=== PATIENT | male | born 1985 | race Caucasian/White ===

== ENCOUNTER 2023-03-31 08:39 | Outpatient (CLI) | payer BC, SELFPAY | END 2023-03-31 08:40 | disposition home or self-care (01) | LOC: NFLDREF 04-01 08:30 | PROVIDERS: PCP Family Medicine; Referring Provider Family Medicine; Visit Provider Family Medicine | DX: Z00.00 Encounter for general adult medical examination without abnormal findings (principal); F10.10 Alcohol abuse, uncomplicated; Z12.5 Encounter for screening for malignant neoplasm of prostate; Z13.6 Encounter for screening for cardiovascular disorders | CPT/HCPCS: 80053; 80061; 84153 ==

== ENCOUNTER 2023-07-19 10:00 | Outpatient (RCR) | payer BC, SELFPAY ==
--- NOTE | 2023-06-19 09:17 | PT.OPDNX ---
PT [facility] Daily Note PT [facility] Daily Note Start: 04/10/23 09:53 Freq: Status: Active Protocol: Document 06/19/23 08:34 ARR (Rec: 06/19/23 09:16 ARR [email or web address]) E-signed By Beth Peraza DPT PT OP Daily Progress Note Visit Information Note Type Daily Note Visit Number 8 Insurance Information Insurance Name [employer] Insurance Information/Comments 11/09 EVAL 04/17 POC extended on 06/19 for additional 8 visits. 16 total Medical Diagnosis M54.6 pain in thoracic spine M54.2 cervicalgia Treating Diagnosis M54.6 pain in thoracic spine M54.2 cervicalgia Referring MD Pearce (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 Date: 04/10/2023 Prepared by: Beth Peraza Exercises - Prone Chest Stretch on Chair - 1-2 x daily - 5-7 x weekly - 6-8 reps - Segmental Cat Cow - 1-2 x daily - 5-7 x weekly - 6-8 reps - Sidelying Open Book Thoracic Lumbar Rotation and Extension - 1-2 x daily - 5-7 x weekly - 10 reps - Sleeper Stretch - 1 x daily - 5-7 x weekly - 2-3 reps - 30 sec hold Objective Other/Pertinent Objective Prolonged distraction with CS flexion reduces scap sx's Eval: Posture: rounded shoulders, reduced TS kyphosis with inc?d prominence of CT junction. Inc?d scapular protraction/ abduction Palpation: no significant TTP. Inc?d tone bilateral TS paraspinals. Inc?d prominence of anterior humeral head bilaterally. RANGE OF MOTION UE AROM (R/L): -ER0: 60* bilat -Abd: 180 R scap pain -FF: 180 no pain increased -Sidelying IR PROM: 60 L, 40 R -MRE: L mid scap / R inferior angle -LRF: T2 bilat Cervical AROM: -Flx: 45 -Ext: 45 with R scap pain -R Rot: 60 with R scap pain -L Rot: 60 -R Sidebend: reproduction of R scap pain -L Sidebend: WNL TS AROM: slight reduction it TS AROM rotation bilaterally without pain flare STRENGTH UE Strength (R/L): -ER0: 3+ R with anterior sh pain / 4- L -IR0: R/L 4+ SPECIAL TESTS: Labral: (R/L) -O?Briens: neg -Biceps Load (supine or seated ): neg Instability (R/L) -A/P load and shift: neg bilat -Sulcus sign: neg bilat Impingement (R/L) -Neers: neg bilat -Miller-Mukesh: neg bilat -Posterior internal impingement: neg bilat Other Tests: -Spurlings: neg -Distraction: neg -PA segmental assessment: hypomobility C7-T5 -Deep neck flexor: poor Patient Instructed in Risks/Benefits Yes Neuromuscular Re-Ed Neuromuscular Reeducation Minutes ( 23 minutes) Neuromuscular Reeducation Comments NMR: Indicated to facilitate improved muscle firing and postural awareness through the use of tactile cues. -Quadruped bird dog UE only x 6 reps. LE only x 6 reps -Quadruped Sh ext orange tubing 2 x 15ea side Standing: -D2 ext 2 x 10 reps blue tubing R UE. x 10 reps L UE -D1 flexion x 10 reps ea UE yellow tubing Other Interventions Provided Other Interventions Provided Patient received mechanical cervical traction for 15 minutes. Did use intermittent setting at 60? maximum pull and 20? minimum hold duty cycle with intensity being 27 lbs max and 22 lbs minimum. No adverse reaction identified. Patient was positioned supine; tolerated treatment well. Remaining time spend on joint and skin assessment. Total treatment time 15 min. CS angle 30* Other Interventions Untimed Minutes 20 Treatment Minutes Untimed Code Treatment Minutes 20 Timed Code Treatment Minutes 23 Total Treatment Time 43 Billing Units Manual Therapy Units 1 Mechanical Traction Units 1 Assessment/Impression Assessment/Impression Pt had been seen for pain in thoracic spine and neck pain for 8 visits from 04/17/23 to 06/19/23 during this episode of physical therapy. Focus of therapy on spinal ROM/ stretching, DNF strengthening, per-scap stabilization . Interventions including ther exercise, manual therapy, neruomuscular re-education, cervical traction. Pt at this time has not met all short/ intermediate goals and would benefit from continued therapy sessions at a frequency of 1x /wk x 8 visits. Maximal therapeutic benefit has not yet been reached and pt would benefit from continued therapy with extension of current plan of care with goals as listed below with time frame changed to account for additional visits Plan of Care Physical Therapy Goals STG (within 8 wks) 1) Pt will initiate HEP without increased pain/ symptoms 2) Pt will tolerate progression to cervical strengthening including DNF without increased pain/ symptoms in order to show reduced tissue sensitivity LTG (within 16 wks) 1) Pt will be indep with HEP for intermediate management of pain/symptoms 2) Pt will demonstrate cervical AROM all planes with pain not exceeding 2/10 in R scap for improved head turns when driving 4) Pt will report at least 80% improvement in pain/symptoms since start of PT for return to PLOF 5) Patient will demonstrate proper body mechanics and self -correction of neutral spine/ shoulder girdle at least 80% of the time 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 Focus on strength and spinal stabilization/ mobility -HEP serratus strengthening, pec stretching, esteban-scap strengthening, push-ups - add to HEP focus on esteban-scap strengthening. -Review gym lifts. -TS ROM: rotation with FR, GHJ extension with FR, quadruped rotations, supine angles on FR -Scap strengthening
== END 2023-09-11 12:30 | disposition home or self-care (01) ==
PROVIDERS: PCP Family Medicine; Visit Provider Family Medicine
DX: M54.6 Pain in thoracic spine (principal); M54.2 Cervicalgia; Z51.89 Encounter for other specified aftercare
CPT/HCPCS: 97012; 97110; 97112; 97140; 97161

== ENCOUNTER 2024-07-19 08:13 | Outpatient (CLI) | payer BC, SELFPAY ==
--- OUTSIDE RECORDS SUMMARY | 2024-07-23 14:38 | XMS_ITS | Referral Summary ---
Author Organization [facility] Address [address] [place] [address] Care Team Providers Care House Decorator Name Role Phone Unavailable Primary Care Provider Unavailabl e Source Comments Patient records contain information from all sites at [facility]. For routine questions regarding patient records, call [phone] during business hours, M-F 8:00 AM - 5:00 PM Central Time. 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
--- OUTSIDE RECORDS SUMMARY | 2024-07-23 14:38 | XMS_ITS | Clinical Summary ---
Author Organization [facility] Address [address] [place] [address] Care Team Providers Care Leather Novelty Parts Cutter Name Role Phone Unavailable Primary Care Provider Unavailabl e Source Comments Patient records contain information from all sites at [facility]. For routine questions regarding patient records, call [phone] during business hours, M-F 8:00 AM - 5:00 PM Central Time. 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 Gender Identity Not on file Sexual Orientation Not on file Plan of Treatment Health Maintenance Due Date Last Done Comments HIV Screening 1985 Hepatitis C Screening 1985 Lipid (Cholesterol) Screening 1985 Hepatitis B Vaccines (1 of 3 - 19+ 3-dose series) 02/05/2004 Depression Screening (Annual PHQ-2) 09/04/2023 COVID-19 Vaccine ( - 2023-2 5 season) 2024 Influenza Vaccine (#1) 2024 07/03/2017 DTaP,Tdap,and Td Vaccines (4 - Td or Tdap) 04/04/2033 04/04/2023, 08/14/2012, 12/18/1997 Pneumococcal vaccine (0-64 years) Aged Out 04/04/2023 No longer eligible b ased on patient's age to complete this topic HPV Vaccines Aged Out No longer eligi ble based on patient's age to complete this topic IPV Vaccines Aged Out No longer eligi ble based on patient's age to complete this topic Insurance [facility] [phone]
--- OUTSIDE RECORDS SUMMARY | 2024-07-23 14:38 | XMS_ITS ---
Author Organization [facility] Address [address] [place] [address] Care Team Providers Care Facility Maintenance Manager Name Role Phone Unavailable Unavailable Unavailable Surgery Details Not on file Complications Check Surgery Details section. Procedure Estimated Blood Loss Check Surgery Details section. Procedure Findings Check Surgery Details section. Procedure Specimens Taken Check Surgery Details section.
== END 2024-07-19 08:14 | disposition home or self-care (01) ==
LOC: NFLDREF 07-23 14:36
PROVIDERS: PCP Family Medicine; Referring Provider Family Medicine; Visit Provider Family Medicine
DX: Z86.39 Personal history of other endocrine, nutritional and metabolic disease (principal)
CPT/HCPCS: 82947

== ENCOUNTER 2024-12-20 13:36 | Emergency (ER) | payer BC, SELFPAY ==
--- OUTSIDE RECORDS SUMMARY | 2024-12-20 13:38 | XMS_ITS | Clinical Summary ---
Author Organization [facility] Address [address] [place] [address] Care Team Providers Care Youth Development Specialist Name Role Phone Unavailable Primary Care Provider Unavailabl e Source Comments Patient records contain information from all sites at [facility]. For routine questions regarding patient records, call [phone] during business hours, M-F 8:00 AM - 5:00 PM Central Time. 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 Gender Identity Not on file Sexual Orientation Not on file Plan of Treatment Health Maintenance Due Date Last Done Comments HIV Screening 1985 Hepatitis C Screening 1985 Lipid (Cholesterol) Screening 1985 Hepatitis B Vaccines (1 of 3 - 19+ 3-dose series) 02/05/2004 COVID-19 Vaccine ( - 2023-2 5 season) 2024 Influenza Vaccine (#1) 2024 07/03/2017 Depression Screening (Annual PHQ-2) 09/04/2024 DTaP,Tdap,and Td Vaccines (4 - Td or Tdap) 04/04/2033 04/04/2023, 08/14/2012, 12/18/1997 Pneumococcal vaccine (0-49 years) Aged Out 04/04/2023 No longer eligible b ased on patient's age to complete this topic HPV Vaccines Aged Out No longer eligi ble based on patient's age to complete this topic IPV Vaccines Aged Out No longer eligi ble based on patient's age to complete this topic Insurance [facility] [place] [id number]
--- OUTSIDE RECORDS SUMMARY | 2024-12-20 13:38 | XMS_ITS | Data Portability ---
Author Organization [place] [facility] [employer], [employer] PREMISES TECHNICIAN [facility] Address [address] [place] [address] Assessment Encounter Date Assessment Date Assessment LastModified by Organization Details LastModified Time 09/17/2024 09/17/2024 ASSESSMENT: Patient is a good candidate for conservative care and the prognosis is for a favorable outcome that achieves the patients' goals. We discussed etiology, activity modifications, home care, and other treatment options. Initially, it is recommended that the patient receive in-office treatment 1 times per week for 8 weeks at which time a re-evaluation will be performed to determine an appropriate change in plan. Initially, treatment will focus on joint manipulation to restore range of motion and reduce pain. We will slowly progress to therapeutic exercises and activities to improve function, strength, and stability may also be used as warranted. If the patient is not responding as expected, more invasive procedures will be discussed along with a referral. All considerations above were discussed with the patient and questions answered to satisfaction. If the patient should have any additional questions, or should the condition evolve or worsen, the patient should not hesitate to contact our office. mikie Not available 09/18/2024 10:59:45 Plan of Treatment Reminders Order Date Submit Date Provider Last Modified By Organization Details Last Modified Time Details Appointments None record ed. Lab None record ed. Referral None record ed. Procedures None record ed. Surgeries None record ed. Imaging None record ed. Medication Orders None record ed. Patient TargetsNo targets recorded. Patient InstructionsNo instructions recorded. Reason for Referral None Reported. Problems Name Problem SNOMED Code Status Onset Date Resolution Date Notes Provider Name and Address Organization Details Recorded Time Lesion of lumbar spine 967780923 Active 2024 Jose Elias Cha, FERNANDO [address], [place], [address], [place] [facility] 10:59:46 Lumbar segmental dysfunction 922949272 Active 2024 Jose Elias Cha DC [address], [place], [address], [place] [facility] 10:59:46 Neck pain 11126067 Active 2024 Jose Elias Cha DC [address], [place], [address], [place] [facility] 10:59:46 Thoracic segmental dysfunction 155080818 Active 2024 Jose Elias Cha DC [address], [place], [address], [place] [facility] 10:59:46 Cervical segmental dysfunction 828626864 Active 2024 Jose Elias Cha DC [address], [place], [address], [place] [facility] 10:59:47 Problem Notes None recorded. Procedures Surgical History Date Name Laterality Status Provider Name and Address Organization Details Recorded Time 601[address]: Spinal manipulation , 3 to 4 regions completed Jose Elias Cha DC [address], [place], [address], [facility] 09/18/2024 11:00:11 Imaging Results None recorded. Procedure Notes None recorded. Medical Equipment None Reported. Vitals None Recorded Social History None recorded. Functional Status None recorded. Mental Status None recorded. Family History Nothing Reported. Medical History No medical history recorded. Past Encounters Encounter ID Performer Location Encounter Start Date Encounter Closed Date Diagnosis/Indication Diagnosis SNOMED-CT Code Diagnosis ICD10 Code Diagnosis Note [id number] Jose Elias Cha DC [facility] [address] [place] [address] 09/17/2024 12:24:12 09/18/2024 14:53:18 Lesion of lumbar spine 885199567 M99.01 Neck pain 70939644 M54.2 Thoracic s egmental dysfunction 903124375 M99.02 Lumbar seg mental dysfunction 671847064 M99.03 Cervical s egmental dysfunction 526913881 M99.01 Health Concerns Section Related Observation LastModified by Organization Detai ls LastModified Time None Recorded Concern Status LastModified by Organization Details LastModified Time None Recorded Advance Directives Directive None Recorded Payers Encounter Date Sequence Insurance Name Policy Number Policy Conner Covered Member ID Conner Member ID Guarantor Name 09/17/2024 1 [facility] [id number] Zion Teo [id number] Zion Bruce Notes Date Note Type Note Provider Name and Address Organization Details Recorded Time 09/17/2024 text/html HPI - Cervical SpineReported bypatient.Location: left Quality:aching Severity:moderate Duration:2 weeks Timing:gradual Alleviating Factors:ice Aggravating Factors:sitting Associated Symptoms:no numbness/tingling Jose Elias Cha DC [address], [place], [address], [facility] 09/18/2024 11:00:42
[2024-12-20 13:44] VITALS: BP 111/78; PULSE 84; RESP 17; TEMP 37.2; O2SAT 97; BMI 30.9
--- NOTE | 2024-12-20 13:53 | CRLHL7_ITS ---
For Patients: As a result of the Cures Act, medical imaging exams and procedure reports are released immediately into your electronic medical record. You may view this report before your referring provider. If you have questions, please contact your health care provider. INDICATION: Anterior chest wall pain TECHNIQUE: Chest and left ribs 3 views. COMPARISON: None. FINDINGS: Cardiovascular and mediastinum: Heart size and vasculature are normal in caliber and appearance. Mediastinum is within normal limits. Lungs and pleural spaces: Minimal atelectasis/scarring in the lingula. No sign of pleural effusion. No pneumothorax. Bones and soft tissues: No acute displaced rib fracture. IMPRESSION: No acute displaced rib fracture. Dictated by Dana Bennett MD @ 12/20/2024 2:20:59 PM (Electronically Signed)
--- NOTE | 2024-12-20 13:56 | ED_ITS ---
HPI - General Adult General Chief complaint: Fall/Minor Trauma Stated complaint: Possible fractured ribs left side Time Seen by Provider: 12/20/24 13:44 Source: patient Mode of arrival: ambulatory Limitations: no limitations History of Present Illness HPI narrative: 39-year-old male presents today with anterior chest wall pain. Patient states he was playing hockey just over 1 week ago when he was checked into the boards. He states that he felt crunching any immediate pain over the anterior chest. Over the last week the pain is progressively gotten worse. He describes pain with deep inspiration and with movement. He denies any fevers or chills. No cough. He is not short of breath. Has a difficult time sleeping at night. Related Data Home Medications ?Medication ?Instructions ?Recorded ?Confirmed ibuprofen 200 mg tablet 600 - 800 mg PO Q6H PRN 07/22/24 11/20/24 Previous Rx's ?Medication ?Instructions ?Recorded albuterol sulfate 90 mcg/actuation 2 puff inhalation Q4-6H PRN 07/22/24 aerosol inhaler shortness of breath or wheezing #6.7 grams omeprazole 20 mg capsule,delayed 20 mg PO DAILY #90 caps 07/22/24 release varenicline tartrate 1 mg tablet 1 mg PO BID #56 tabs 07/22/24 dextroamphetamine-amphetamine ER 20 mg PO QAM #30 caps 12/16/24 20 mg 24hr capsule,extend release Allergies Allergy/AdvReac Type Severity Reaction Status Date / Time No Known Drug Allergies Allergy Verified 11/20/24 14:23 Review of Systems Status of ROS: Reports: 6 or more systems reviewed and unremarkable except as noted in History and below [facility] Social History What is your current living situation?: I presently have a place to live Problems where you live: no known problems In the past 12 months, utilities in danger of being shut off: no In past 12 months, lack of transportation kept you from medical appts, meetings, work, or getting things needed for daily living: no In the past 12 mos, have been you worried that your food would run out before you had money to buy more?: never true In the past 12 mos, the food you bought just didn't last and you didn't have money to buy more?: never true Smoking Status: Former smoker How often do you have a drink containing alcohol: never How often do you have six or more drinks on one occasion: Never AUDIT-C Alcohol total score: 0 Non-prescribed substance use: denies use How often does anyone, including family, friends and others, physically hurt you : never How often does anyone, including family, friends and others, insult or talk down to you: never How often does anyone, including family, friends and others, threaten you with harm: never How often does anyone, including family, friends and others, scream or curse at you: rarely Health Related Social Needs: Other personal risk factors, not elsewhere classified (Z91.89) Exam Narrative: Exam Narrative: Well-nourished well-developed patient in no acute distress. Alert and oriented. Answers questions appropriately. Mood and affect are appropriate. Thoughts are goal oriented and rational. No tangential or magical thinking noted. Patient speaks in full sentences without needing to catch his breath. HEENT: Normocephalic atraumatic. Pupils are equally round reactive to light. Extraocular muscles are intact. Conjunctivae are moist without any icterus noted. Moist mucous membranes. Cardiovascular: Heart is regular rate and rhythm S1 and S2 are present without any murmurs. Lungs: Clear to auscultation bilaterally no wheezes rhonchi or rales are appreciated. Deep breath causes discomfort. He has no bruising or skin changes noted of the chest wall. He has tenderness just left of the sternal border, on long several ribs. No tenderness over the lateral or posterior chest wall. No pain over the sternum. No crepitus. No pain over the cervical, thoracic spine. He has full range of motion at the neck with flexion, extension, side way bending and rotation without pain. Const: Vital Signs, click to edit/add: Vital Signs - 24 hr 12/20/24 13:44 Temperature 98.9 F Pulse Rate [Pulse Oximeter] 84 Respiratory Rate 17 Blood Pressure [Ri ght Upper Arm] 111/78 Pulse Oximetry 97 Oxygen Delivery Me thod Room Air Course Course ED Course: Rib series was done, no fractures identified. No evidence of pneumothorax. Vital Signs Vital signs: Initial Vital Signs Temperature 98.9 F 12/20/24 13:44 Temperature Source Temporal Artery Scan 12/20/24 13:44 Pulse Rate 84 12/20/24 13:44 Respiratory Rate 17 12/20/24 13:44 Blood Pressure 111/78 12/20/24 13:44 Blood Pressure Mean 89 12/20/24 13:44 Pulse Oximetry 97 12/20/24 13:44 Oxygen Delivery Method Room Air 12/20/24 13:44 Vital Signs Temperature 98.9 F 12/20/24 13:44 Pulse Rate 84 12/20/24 13:44 Respiratory Rate 17 12/20/24 13:44 Blood Pressure 111/78 12/20/24 13:44 Pulse Oximetry 97 12/20/24 13:44 Oxygen Delivery Method Room Air 12/20/24 13:44 Temperature 98.9 F 12/20/24 13:44 Pulse Rate 84 12/20/24 13:44 Respiratory Rate 17 12/20/24 13:44 Blood Pressure 111/78 12/20/24 13:44 Pulse Oximetry 97 12/20/24 13:44 Oxygen Delivery Method Room Air 12/20/24 13:44 Medical Decision Making MDM Narrative Medical decision making narrative: Anterior chest wall contusion. No shortness of breath or difficulty breathing. We discussed symptomatic treatment. Imaging Data ribs: Attestation: I have reviewed the pertinent imaging results. Radiologist's impression: TECHNIQUE: Chest and left ribs 3 views. COMPARISON: None. FINDINGS: Cardiovascular and mediastinum: Heart size and vasculature are normal in caliber and appearance. Mediastinum is within normal limits. Lungs and pleural spaces: Minimal atelectasis/scarring in the lingula. No sign of pleural effusion. No pneumothorax. Bones and soft tissues: No acute displaced rib fracture. IMPRESSION: No acute displaced rib fracture. Discharge Plan Discharge Clinical Impression: Contusion of anterior chest wall Patient Disposition: Home, Self-Care Condition: Stable Additional Instructions: No evidence of fractures were identified on your x-ray today. Recommend ice or heat to the chest wall, whichever feels best. Do not apply heat or ice to the skin directly into not use for more than 20 minutes at a time. Okay to use ibuprofen as needed/as directed for pain. Prescriptions: No Action ibuprofen 200 mg tablet 600 - 800 mg PO Q6H PRN omeprazole 20 mg capsule,delayed release(DR/EC) 20 mg PO DAILY Qty: 90 3RF varenicline tartrate 1 mg tablet 1 mg PO BID Qty: 56 5RF albuterol sulfate 90 mcg/actuation HFA aerosol inhaler 2 puff inhalation Q4-6H PRN (Reason: shortness of breath or wheezing) Qty: 6.7 4RF dextroamphetamine-amphetamine 20 mg capsule,extended release 24hr 20 mg PO QAM Qty: 30 0RF Rx Instructions: Please schedule ADHD appointment. Follow Up/Referrals: Stephon Pearce MD [Primary Care Provider] - Stand Alone Forms: Reflex Info Instructions
--- OUTSIDE RECORDS SUMMARY | 2024-12-20 14:01 | XMS_ITS | Clinical Summary ---
Author Organization [facility] Address [address] [place] [address] Care Team Providers Care Log Hauler Name Role Phone Unavailable Primary Care Provider Unavailabl e Source Comments Patient records contain information from all sites at [facility]. For routine questions regarding patient records, call [phone] during business hours, M-F 8:00 AM - 5:00 PM Central Time. Record requests for emergency care only can be directed to [phone] at any time.[facility] Social History Tobacco Use Types Packs/Day Years Used Date Smoking Tobacco: Never Assessed Nutrition Answer Date Recorded Nutrition: EVOO Fat Source Unknown 04/25 Nutrition: Servings of Fruits/Vegetables per Day Not on file 04/25/2023 Dental Answer Date Recorded Dental: Regular Dentist Unknown 04/25/20 23 Sex and Gender Information Value Date Recorded Sex Assigned at Not on file Legal Sex Male 9:23 AM [employer] Gender Identity Not on file Sexual Orientation [...] patient's age to complete this topic Insurance [facility] [place] [id number]
== END 2024-12-20 14:45 | disposition home or self-care (01) ==
PROVIDERS: Emergency Provider Family Medicine; PCP Family Medicine
DX: S20.212A Contusion of left front wall of thorax, initial encounter (principal); W22.01XA Walked into wall, initial encounter; Y93.22 Activity, ice hockey
CPT/HCPCS: 71101; 99283; 99284

== ENCOUNTER 2025-07-25 07:45 | Outpatient (CLI) | payer BC, SELFPAY | END 2025-07-25 07:46 | disposition home or self-care (01) | LOC: NFLDREF 07-31 13:31 | PROVIDERS: PCP Family Medicine; Referring Provider Family Medicine; Visit Provider Family Medicine | DX: R74.01 Elevation of levels of liver transaminase levels (principal); R73.09 Other abnormal glucose | CPT/HCPCS: 80053 ==